=== PATIENT | male | born 2000 | race Caucasian/White ===

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

== ENCOUNTER 2018-03-17 21:28 | Emergency (ER) | payer OTHER ==
[2018-03-17 21:35] VITALS: BP 130/77; PULSE 65; RESP 16; TEMP 98.1
--- NOTE | 2018-03-17 22:24 | XR ---
PROCEDURE: XR finger LT 3 views DATE AND TIME: 03/17/2018 9:57 PM REFERRING PHYSICIAN: Darrell Reynolds CLINICAL INDICATION: Pain following dog bite, index finger. TECHNIQUE: Department protocol. COMPARISON: None FINDINGS: There is no fracture or malalignment. The soft tissues are unremarkable. IMPRESSION: NO ACUTE PROCESS.
--- NOTE | 2018-03-17 23:07 | ED ---
General Adult HPI - General Chief complaint: Wound/Laceration Stated complaint: finger lac Time Seen by Provider: 03/17/18 21:37 Source: patient, RN notes reviewed Mode of arrival: ambulatory Limitations: no limitations - History of Present Illness Initial comments: 17-year-old male presents to the emergency determine for a chief complaint of laceration of the dorsal aspect of the right index finger. Patient states he broke his zipper up his pants and had his appetite is buttoned. When he went to cut it he accidentally cut his finger with a knife. Patient states he is able to move the finger. Patient denies any other injuries. Patient states he is up-to-date on all his childhood vaccinations and his mother confirms that. Patient has no other complaints at this time including shortness of breath, chest pain, abdominal pain, nausea or vomiting, headache, or visual changes. - Related Data Home Medications Medication Instructions Recorded Confirmed Dextroamphetamine/Amphetamine 10 mg PO DAILY 01/12/17 01/12/17 [Adderall] Previous Rx's Medication Instructions Recorded Vancomycin Oral Solution 125 mg PO Q6HR 10 Days ml 01/12/17 metroNIDAZOLE [Flagyl] 500 mg PO TID 10 Days tab 01/12/17 Cyclobenzaprine [Flexeril] 10 mg PO TID PRN #15 tab 08/21/17 Ibuprofen [Motrin] 600 mg PO Q8HR PRN #30 tab 08/21/17 Allergies Allergy/AdvReac Type Severity Reaction Status Date / Time No Known Allergies Allergy Verified 03/17/18 21:35 Review of Systems ROS Statement: Those systems with pertinent positive or pertinent negative responses have been documented in the HPI. ROS Other: All systems not noted in ROS Statement are negative. Past Medical History Past Medical History: No Reported History History of Any Multi-Drug Resistant Organisms: C-DIFF Date of last positivie culture/infection: 12/18 MDRO Source:: stool Past Surgical History: No Surgical Hx Reported Past Psychological History: No Psychological Hx Reported Smoking Status: Never smoker Past Alcohol Use History: None Reported Past Drug Use History: None Reported General Exam Limitations: no limitations General appearance: alert, in no apparent distress Head exam: Present: atraumatic, normocephalic, normal inspection Respiratory exam: Present: normal lung sounds bilaterally. Absent: respiratory distress, wheezes, rales, rhonchi, stridor Cardiovascular Exam: Present: regular rate, normal rhythm, normal heart sounds. Absent: systolic murmur, diastolic murmur, rubs, gallop, clicks Extremities exam: Present: full ROM (Full range of motion of the second digit left hand.), tenderness (Tenderness of the laceration site), normal capillary refill (Refill less than 2 seconds in the left second digit. Radial pulse 2+.) , other (There is a 1 cm laceration on the dorsal aspect of the middle phalanx left index finger.). Absent: joint swelling Course Vital Signs 03/17/18 21:31 Temperature 98.1 F Pulse Rate 65 Respiratory 16 Rate Blood Pressure 130/77 O2 Sat by Pulse 99 Oximetry Procedures - Procedures Initial comment: Body area: Volar aspect middle phalanx left index finger. Laceration length: 1 cm Foreign bodies: no foreign bodies Tendon involvement: none Nerve involvement: none Vascular damage: no Anesthesia: local infiltration Local anesthetic: 4 mL 1% lidocaine Preparation: Patient was prepped and draped in the usual sterile fashion. Irrigation solution: saline Irrigation method: Saline jet lavage Skin closure:5-0 Ethilon using sterile technique Number of sutures: 5 Technique: interupted Dressing: antibiotic ointment/ gauze Patient tolerance: Patient tolerated the procedure well with no immediate complications. Medical Decision Making - Medical Decision Making 17-year-old male presents to the emergency department for a chief complaint of laceration on the left index finger. This occurred from a knife. Patient is up -to-date on vaccinations. Patient has full range of motion in the second digit. Sensation intact. Cap refill less than 2 seconds. On exam there is a 1 cm laceration. This was irrigated with saline and cleaned with iodine. It was then sutured with 5 sutures. Bacitracin was applied. Patient was provided a splint to help him from bending the finger. Patient was educated to return in 7-10 days to have sutures removed. He was educated to return earlier if he has any signs of infection or worsening symptoms. He will take Motrin or Tylenol for pain. He will follow up with primary care in 1-2 days. Disposition Clinical Impression: Laceration Disposition: HOME SELF-CARE Condition: Good Instructions: Care For Your Stitches (ED), Laceration (ED) Additional Instructions: Please take Tylenol or Motrin for pain relief. Please follow-up with primary care provider in one to 2 days. Return to the emergency department in 7-10 days to have sutures removed. If he notices any signs of infection or worsening symptoms return to the emergency department as soon as possible. Is patient prescribed a controlled substance at d/c from ED?: No Referrals: Campos Pierce MD [Primary Care Provider] - 1-2 days Time of Disposition: 23:06
== END 2018-03-17 23:15 | disposition home or self-care (01) ==
LOC: EC 21:28
DX: S61.211A Laceration without foreign body of left index finger without damage to nail, initial encounter (principal); Z79.899 Other long term (current) drug therapy; W26.0XXA Contact with knife, initial encounter; Y93.89 Activity, other specified
CPT/HCPCS: 12001; 99283

== ENCOUNTER 2018-08-04 12:36 | Emergency (ER) | payer OTHER ==
[2018-08-04 12:51] VITALS: BP 123/64; PULSE 64; RESP 18; TEMP 98
--- NOTE | 2018-08-04 13:32 | ED ---
General Adult HPI - General Chief complaint: Extremity Injury, Lower Stated complaint: RT THIGH INJURY Time Seen by Provider: 08/04/18 12:52 Source: patient, RN notes reviewed Mode of arrival: wheelchair Limitations: no limitations - History of Present Illness Initial comments: Patient 18-year-old male presenting to the emergency room today with a chief complaint of injury to the right leg. He does admit that he was playing hockey last night. He denies any significant injury. He states he was out on the ice when he came back to the bench noticed that there was pain to the right quadricep area. He states it felt like a charley horse. Patient states that by the time he got back to the ice arena feliz thomas was having a difficult time putting weight on the leg. He states it is a little bit better this morning. States it was more swollen last night has improved some today. Patient states he tried to make appointments family doctor but has not been seen by them in the would not see him today so they came here to the emergency room. Patient denies any other injury or complaint. Patient denies any recent fever, chills, shortness of breath, chest pain, back pain, abdominal pain, nausea or vomiting, numbness or tingling, headaches or visual changes, or any other complaints. - Related Data Home Medications Medication Instructions Recorded Confirmed No Known Home Medications 08/04/18 08/04/18 Allergies Allergy/AdvReac Type Severity Reaction Status Date / Time No Known Allergies Allergy Verified 08/04/18 13:24 Review of Systems ROS Statement: Those systems with pertinent positive or pertinent negative responses have been documented in the HPI. ROS Other: All systems not noted in ROS Statement are negative. Past Medical History Past Medical History: No Reported History History of Any Multi-Drug Resistant Organisms: None Reported Date of last positivie culture/infection: 12/18 MDRO Source:: stool Past Surgical History: No Surgical Hx Reported Past Psychological History: No Psychological Hx Reported Smoking Status: Never smoker Past Alcohol Use History: None Reported Past Drug Use History: None Reported General Exam - General Exam Comments Initial Comments: General: The patient is awake and alert, in no distress, and does not appear acutely ill. Eye: Pupils are equal, round and reactive to light. Extra-ocular movements are intact. No nystagmus. There is normal conjunctiva bilaterally. No signs of icterus. Ears, nose, mouth and throat: There are moist mucous membranes and no oral lesions. Neck: The neck is supple. Musculoskeletal: Patient shows good range of motion. Pedal pulses are 2+ bilaterally. Patient sensations intact. Patient does have moderate swelling of the quadricep area. Social bruising or color change. Patient is able to perform straight leg raise test. Patient does show good strength. Sensation intact. Neurological: A&O x 3. CN II-XII intact, There are no obvious motor or sensory deficits. Coordination appears grossly intact. Speech is normal. Skin: Skin is warm and dry and no rashes or lesions are noted. Psychiatric: Cooperative, appropriate mood & affect, normal judgment. Limitations: no limitations Course Vital Signs 08/04/18 12:47 Temperature 98.0 F Pulse Rate 64 Respiratory 18 Rate Blood Pressure 123/64 O2 Sat by Pulse 97 Oximetry Medical Decision Making - Medical Decision Making Patient advised continue crutches use warm compresses to the area and follow-up with orthopedics. Disposition Clinical Impression: Injury of quadriceps muscle Disposition: HOME SELF-CARE Condition: Good Instructions: Muscle Strain (ED) Additional Instructions: Please use crutches and follow-up orthopedics over the next 2 days. Please continue to elevate. Use ibuprofen for pain. Return to emergency room for new concerns. Is patient prescribed a controlled substance at d/c from ED?: No Referrals: Tristin Garrett MD [Primary Care Provider] - 1-2 days Rudolph Wilder MD [Medical Doctor] - 1-2 days Time of Disposition: 13:31
== END 2018-08-04 13:51 | disposition home or self-care (01) ==
LOC: EC 12:36
DX: S76.101A Unspecified injury of right quadriceps muscle, fascia and tendon, initial encounter (principal); X58.XXXA Exposure to other specified factors, initial encounter; Y93.22 Activity, ice hockey
CPT/HCPCS: 99283

== ENCOUNTER 2019-09-18 16:58 | Emergency (ER) | payer OTHER ==
[2019-09-18 17:10] VITALS: BP 127/72; RESP 18; TEMP 98
--- NOTE | 2019-09-18 18:27 | CT ---
EXAMINATION TYPE: CT brain daljit rangel DATE OF EXAM: 09/18/2019 COMPARISON: None HISTORY: Headache and neck pain after hockey injury. CT DLP: 1436.[address] Brain: Unenhanced CT of the brain was performed. The ventricles, basal cisterns and sulci overlying the cerebral convexities demonstrate a normal appe arance. There is no evidence for intracranial hemorrhage or sulcal effacement. No mass effects are seen. If symptoms persist consider MRI. Osseous calvarium is intact. IMPRESSION: No acute intracranial process CT Cervical Spine: Unenhanced CT of the cervical spine was performed with bone and soft tissue window settings submitted . Coronal and sagittal reconstruction is obtained. There is normal alignment and prevertebral soft tissues. I do not see evidence for fracture or sublu xation. No significant degenerative changes are present. The lung apices are clear. IMPRESSION: No evidence for acute fracture or subluxation of the cervical spine.
--- NOTE | 2019-09-18 18:49 | ED ---
General Adult HPI - General Chief complaint: Neck Pain/Injury Stated complaint: Headache Time Seen by Provider: 09/18/19 17:35 Source: patient, RN notes reviewed, old records reviewed Mode of arrival: ambulatory Limitations: no limitations - History of Present Illness Initial comments: 19-year-old male patient full vaccine no pertinent past medical history presents to chief complaint of pain at base of skull/right paracervical region proximally. Patient reports that approximately 2 weeks ago he was hit the boards while playing hockey. Patient plays in a competitive [employer] daily. Patient does were full padding. Patient worse that he felt fine. Patient reports that again 4 days ago he was hit again while skating on the side of his head. Patient was wearing a helmet. Patient again reports that he felt fine. Patient reports that today he began to experience pain is at the base of his skull, right paracervical region. There is also reports a mild headache. Denies any other complaints at this time. Systemic: Pt denies fatigue, fever/chills, rash. Pt denies weakness, night sweats, weight loss. Neuro: Pt denies visual disturbances, syncope or pre-syncope. HEENT: Pt denies ocular discharge or irritation, otalgia, rhinorrhea, pharyngitis or notable lymphadenopathy. Cardiopulmonary: Pt denies chest pain, SOB, heart palpitations, dyspnea on exertion. Abdominal/GI: Pt denies abdominal pain, n/v/d. : Pt denies dysuria, burning w/ urination, frequency/urgency. Denies new onset urinary or bowel incontinence. MSK: Pt denies myalgia, loss of strength or function in extremities. Neuro: Pt denies new onset weakness, paresthesias. - Related Data Home Medications Medication Instructions Recorded Confirmed No Known Home Medications 08/04/18 08/04/18 Allergies Allergy/AdvReac Type Severity Reaction Status Date / Time No Known Allergies Allergy Verified 09/18/19 17:06 Review of Systems ROS Statement: Those systems with pertinent positive or pertinent negative responses have been documented in the HPI. ROS Other: All systems not noted in ROS Statement are negative. Past Medical History Past Medical History: No Reported History History of Any Multi-Drug Resistant Organisms: C-DIFF Date of last positivie culture/infection: 12/19 MDRO Source:: stool Past Surgical History: No Surgical Hx Reported Past Psychological History: No Psychological Hx Reported Smoking Status: Never smoker Past Alcohol Use History: Occasional Past Drug Use History: None Reported General Exam - General Exam Comments Initial Comments: Constitutional: NAD, AOX3, Pt has pleasant affect. HEENT: NC/AT, trachea midline, neck supple, no lymphadenopathy. Posterior pharynx non erythematous, without exudates. External ears appear normal, without discharge. Mucous membranes moist. Eyes PERRLA, EOM intact. There is no scleral icterus. No pallor noted. Cardiopulmonary: RRR, no murmurs, rubs or gallops, no JVD noted. Lungs CTAB in anterior and posterior cabrera. No peripheral edema. Abdominal exam: Abdomen soft and non-distended. Abdomen non-tender to palpation in all 4 quadrants. Bowel sounds active in LLQ. No hepatosplenomegaly. No ecchymosis Neuro: CN II-XII intact. No nuchal rigidity. No raccon eyes, no german sign, no hemotympanum. No midlne cervical spinal tenderness. MSK: Right paracervical region mildly tender to palpation. No posterior calf tenderness bilaterally, homans sign negative bilaterally. Posterior tibialis and radial pulse +2 bilaterally. Sensation intact in upper and lower extremities. Full active ROM in upper and lower extremities, 5/5 stregnth. Limitations: no limitations Course Vital Signs 09/18/19 17:06 Temperature 98 F Pulse Rate 45 L Respiratory 18 Rate Blood Pressure 127/72 O2 Sat by Pulse 97 Oximetry Medical Decision Making - Medical Decision Making 19-year-old male patient full vaccine no pertinent past medical history presents to chief complaint of pain at base of skull/right paracervical region proximally. Patient reports that approximately 2 weeks ago he was hit the boards while playing hockey. Patient plays in a competitive [employer] daily. Patient does were full padding. Patient worse that he felt fine. Patient reports that again 4 days ago he was hit again while skating on the side of his head. Patient was wearing a helmet. Patient again reports that he felt fine. Patient reports that today he began to experience pain is at the base of his skull, right paracervical region. There is also reports a mild headache. Denies any other complaints at this time. Pt VSS, afebrile. Physical exam displayed: Right paracervical region mildly tender to palpation. CN II-XII intact. No nuchal rigidity. No raccon eyes, no german sign, no hemotympanum. No midlne cervical spinal tenderness. CT brain c spine negative. Patient likely sprinting paracervical strain. Over discharged outpatient follow-up with primary care provider for clearance surgery sport. Case discussed with Dr. Hoff. Disposition Clinical Impression: Cervical strain Disposition: HOME SELF-CARE Condition: Stable Instructions (If sedation given, give patient instructions): Cervical Sprain (ED) Additional Instructions: Follow-up with primary care provider in 1-2 days for clearance to return to sport. Return to ER if condition worsens in any way. Is patient prescribed a controlled substance at d/c from ED?: No Referrals: Tristin Garrett MD [Primary Care Provider] - 1-2 days
[2019-09-18] MEDS ORDERED: CYCLOBENZAPRINE 10MG STARTER 3 TAB BTL PO STA (18:59)
[2019-09-18 19:05] VITALS: PULSE 50
== END 2019-09-18 19:03 | disposition home or self-care (01) ==
LOC: EC 16:58
DX: S16.1XXA Strain of muscle, fascia and tendon at neck level, initial encounter (principal); R51 Headache; W22.8XXA Striking against or struck by other objects, initial encounter; Y93.21 Activity, ice skating
CPT/HCPCS: 70450; 72125; 99284

== ENCOUNTER 2024-08-29 23:16 | Emergency (ER) | payer OTHER ==
[2024-08-29 23:26] VITALS: RESP 18
[2024-08-29] MEDS: DIPH,PERTUS(ACELL)TETVAC-LF 0.5 ML VIAL IM ONE (23:49)
[2024-08-29] MEDS: LIDOCAINE 1% INJ 10MG/ML (20 ML MDV) SQ ONE (23:52)
[2024-08-29] MEDS: LIDOCAINE/EPINEPHR/TETRACAINE 5 ML BOTTLE TOPICAL ONE (23:52)
--- NOTE | 2024-08-30 01:03 | ED ---
ENT HPI - General Chief complaint: Dental/Oral Stated complaint: Lip injury Time Seen by Provider: 08/29/24 23:28 Source: patient Mode of arrival: ambulatory Limitations: no limitations - History of Present Illness Initial comments: 24-year-old male presenting with chief complaint of laceration to lower lip. Patient was playing hockey when he was hit in the face with a hockey stick. Patient denies any loss of consciousness or blood thinners. Unsure when his last tetanus shot was. Bleeding is well-controlled at this time. It is a 2 cm laceration to the lower lip, was not sure if he needed stitches. No headache, neck pain, nausea, vomiting, dizziness, vision or hearing changes, numbness, tingling, weakness - Related Data Home Medications Medication Instructions Recorded Confirmed No Known Home Medications 08/04/18 08/04/18 Allergies Allergy/AdvReac Type Severity Reaction Status Date / Time No Known Allergies Allergy Verified 08/29/24 23:19 Review of Systems ROS Statement: Those systems with pertinent positive or pertinent negative responses have been documented in the HPI. ROS Other: All systems not noted in ROS Statement are negative. Past Medical History Past Medical History: No Reported History History of Any Multi-Drug Resistant Organisms: C-DIFF Date of last positivie culture/infection: 12/19 MDRO Source:: stool Past Surgical History: No Surgical Hx Reported Past Psychological History: No Psychological Hx Reported Smoking Status: Never smoker Past Alcohol Use History: Occasional Past Drug Use History: Marijuana General Exam Limitations: no limitations General appearance: alert, in no apparent distress Head exam: Present: atraumatic, normocephalic, normal inspection Eye exam: Present: normal appearance, PERRL, EOMI Expanded Mouth exam: Present: laceration (2 cm laceration to the lower left) Neck exam: Present: normal inspection. Absent: meningismus Respiratory exam: Absent: respiratory distress Cardiovascular Exam: Present: regular rate Neurological exam: Present: alert, oriented X3 Psychiatric exam: Present: normal affect, normal mood Skin exam: Present: warm, dry Course Vital Signs 08/29/24 08/30/24 23:21 01:08 Temperature 98.1 F 98.0 F Pulse Rate 66 75 Respiratory 18 18 Rate Blood Pressure 120/75 118/77 O2 Sat by Pulse 97 98 Oximetry Procedures - Laceration Laceration #1 Consent Obtained: verbal consent Indication: laceration Site: lip Size (cm): 2 Description: linear Depth: simple, single layer Anesthetic Used: lidocaine 1%, without epi Anesthesia Technique: local infiltration Pre-repair: wound explored, irrigated extensively Type of Sutures: vicryl Size of Sutures: 5-0 Number of Sutures: 2 Technique: simple, interrupted Patient Tolerated Procedure: well Medical Decision Making - Medical Decision Making Was pt. sent in by a medical professional or institution ([employer], DIRECTOR OF LAND, urgent care, hospital, or longterm...) When possible be specific @ -No Did you speak to anyone other than the patient for history (EMS, parent, family, police, friend...)? What history was obtained from this source @ -No Did you review nursing and triage notes (agree or disagree)? Why? @ -I reviewed and agree with nursing and triage notes Were old charts reviewed (outside hosp., previous admission, EMS record, old EKG, old radiological studies, urgent care reports/EKG's, longterm records)? Report findings @ -No old charts were reviewed Differential Diagnosis (chest pain, altered mental status, abdominal pain women, abdominal pain men, vaginal bleeding, weakness, fever, dyspnea, syncope, headache, dizziness, GI bleed, back pain, seizure, CVA, palpatations, mental health, musculoskeletal)? @ -Not applicable EKG interpreted by me (3pts min.). @ -As above X-rays interpreted by me (1pt min.). @ -None done CT interpreted by me (1pt min.). @ -None done U/S interpreted by me (1pt. min.). @ -None done What testing was considered but not performed or refused? (CT, X-rays, U/S, labs)? Why? @ -None What meds were considered but not given or refused? Why? @ -None Did you discuss the management of the patient with other professionals (professionals i.e. [employer], DIRECTOR OF [employer], lab, RT, psych nurse, social services manager, rn mobile, teacher, college service officer, cyanide case hardener)? Give summary @ -No Was smoking cessation discussed for >3mins.? @ -No Was critical care preformed (if so, how long)? @ -No Were there social determinants of health that impacted care today? How? (Homelessness, low income, unemployed, alcoholism, drug addiction, transportation, low edu. Level, literacy, decrease access to med. care, prison, rehab)? @ -No Was there de-escalation of care discussed even if they declined (Discuss DNR or withdrawal of care, Hospice)? DNR status @ -No What co-morbidities impacted this encounter? (DM, HTN, Smoking, COPD, CAD, Cancer, CVA, ARF, Chemo, Hep., AIDS, mental health diagnosis, sleep apnea, morbid obesity)? @ -None Was patient admitted / discharged? Hospital course, mention meds given and route, prescriptions, significant lab abnormalities, going to OR and other pertinent info. @ -24-year-old male presenting with chief complaint of laceration to the lower lip after being hit in the face with a hockey stick. No loss of consciousness or blood thinners. 2 cm laceration that is closed after irrigation with 2 5-0 Vicryl simple interrupted sutures. Educated on wound care and signs of infection. Discharged. Follow-up with PCP. Report back to ER with any new or worsening symptoms. Discussed return parameters and answered all questions. Patient conveyed verbal understanding and agreed to the plan. I discussed this case in detail with my attending Dr. Villalobos Undiagnosed new problem with uncertain prognosis? @ -No Drug Therapy requiring intensive monitoring for toxicity (Heparin, Nitro, Insulin, Cardizem)? @ -No Were any procedures done? @ -Laceration repair Diagnosis/symptom? @ -Lip laceration Acute, or Chronic, or Acute on Chronic? @ -Acute Uncomplicated (without systemic symptoms) or Complicated (systemic symptoms)? @ -Uncomplicated Side effects of treatment? @ -No Exacerbation, Progression, or Severe Exacerbation? @ -No Poses a threat to life or bodily function? How? (Chest pain, [place], [place], pneumonia, PE, COPD, DKA, ARF, appy, cholecystitis, CVA, Diverticulitis, Homicidal, Suicidal, threat to staff... and all critical care pts) @ -No Disposition Clinical Impression: Lip laceration Disposition: HOME SELF-CARE Condition: Good Instructions (If sedation given, give patient instructions): Care For Your Stitches (ED), Laceration (ED) Additional Instructions: Follow-up with PCP. Report back to ER with any new or worsening symptoms. Take Motrin and Tylenol as needed. Ice the lip to help prevent swelling. Monitor for signs of infection, including but not limited to redness, swelling, warmth, tenderness, discharge, fever. Sutures will dissolve Is patient prescribed a controlled substance at d/c from ED?: No Referrals: Tristin Garrett MD [Primary Care Provider] - 1-2 days Time of Disposition: 01:03
[2024-08-30 01:09] VITALS: BP 118/77; PULSE 75; TEMP 98
== END 2024-08-30 01:09 | disposition home or self-care (01) ==
LOC: EC 23:16
CPT/HCPCS: 12011; 99282